=== PATIENT | female | born 2000 | race Two or more races ===

== ENCOUNTER 2024-01-06 16:16 | Emergency (ER) | payer OTHER ==
[2024-01-06 17:33] LABS: BASOPHILS # (AUTO) 0.1 10^3/uL (0.0-0.1); BASOPHILS % (AUTO) 0.5 %; EOSINOPHILS # (AUTO) 0.2 10^3/uL (0.0-0.7); HGB - HEMOGLOBIN 13.3 g/dL (12.0-16.0); LYMPHOCYTES % (AUTO) 32.2 %; MEAN CORPUSCULAR HEMOGLOBIN 30.7 pg (27.0-31.0); MEAN CORPUSCULAR HGB CONC 34.1 g/dL (32.0-36.0); MEAN CORPUSCULAR VOLUME 90.1 fL (81.0-99.0); MEAN PLATELET VOLUME 9.1 fL (7.9-10.8); MONOCYTES # (AUTO) 0.5 10^3/uL (0.0-1.0); MONOCYTES % (AUTO) 5.7 %; NEUTROPHILS # (AUTO) 5.5 10^3/uL (1.5-6.6); NEUTROPHILS % (AUTO) 59.2 %; PLT - PLATELET COUNT 281 10^3/uL (130-450); RED BLOOD COUNT 4.33 10^6/uL (4.20-5.40); RED CELL DISTRIBUTION WIDTH 11.9 % (12.0-15.0); WHITE BLOOD COUNT 9.2 x10^3/uL (4.8-10.8)
[2024-01-06 17:50] LABS: ALBUMIN 4.4 g/dL (3.2-5.5); ALBUMIN/GLOBULIN RATIO 1.5 (1.0-2.2); BILIRUBIN,TOTAL 0.6 mg/dL (0.2-1.0); CALCIUM 9.4 mg/dL (8.5-10.3); CREATININE 0.6 mg/dL (0.6-1.3); POTASSIUM 3.9 mmol/L (3.5-4.5); TOTAL PROTEIN 7.3 g/dL (6.4-8.9)
--- NOTE | 2024-01-06 18:53 | ED Physician Documentation ---
History of Present Illness - Stated complaint Stated Complaint: /ABD PX - Chief complaint Chief Complaint: Abd Pain - Additonal information Additional information: 23-year-old female with no pertinent past medical history presents emergency department for dark bowel movements that are now accompanied with maroon-colored blood. Patient says this started about 3 to 4 days ago she does not describe it as dark black but just says that it is dark and she started to notice some small clots that appears similar to menses clots but she is confident that she is not currently on her cycle. She has not generalized mid lower abdominal pain that does not radiate anywhere she has had recent unintentional 5 to 7 pound weight loss over the last month but says that she contributed this to recent Cymbalta initiation that she started taking about a month ago. No nausea or vomiting no fevers or chills no urinary urgency dysuria or frequency. No CVA tenderness. PD PAST MEDICAL HISTORY - Past Medical History Past Medical History: Yes Psych: Depression, Anxiety - Past Surgical History Past Surgical History: No - Allergies Allergies/Adverse Reactions: Allergies Allergy/AdvReac Type Severity Reaction Status Date / Time No Known Drug Allergies Allergy Verified 01/06/24 16:48 - Social History Does the pt smoke?: No Smoking Status: Never smoker Does the pt drink ETOH?: No Does the pt have substance abuse?: No - Immunizations Immunizations are current?: Yes - POLST Patient has POLST: No PD ED PE NORMAL - Vitals Vital signs reviewed: Yes - General General: Alert and oriented X 3, No acute distress, Well developed/nourished - Abdomen Abdomen: Normal bowel sounds, Soft, Non tender, No organomegaly, Other (Very mild distention no rebound tenderness) - Back Back: No CVA TTP - Derm Derm: Normal color, Warm and dry, No rash PD ED PE EXPANDED - Rectal Rectal: Fissure (12:00), Normal Tone, Ladies Suit Operator present (HUBERT Bernal present). No: Mass, Hemorrhoid Results - Vitals Vitals: Vital Signs - 24 hr 01/06/24 01/06/24 01/06/24 16:48 18:42 20:33 Temperature 36.8 C Heart Rate 84 78 74 Respiratory 16 Rate Blood Pressure 129/80 111/69 110/66 O2 Saturation 99 98 99 01/06/24 20:38 Temperature Heart Rate 71 Respiratory 16 Rate Blood Pressure 110/66 O2 Saturation 99 Oxygen O2 Source Room air - Labs Labs: Laboratory Tests 01/06/24 01/06/24 01/06/24 17:20 17:20 18:46 WBC 9.2 RBC 4.33 Hgb 13.3 Hct 39.0 MCV 90.1 MCH 30.7 MCHC 34.1 RDW 11.9 L Plt Count 281 MPV 9.1 Neut # (Auto) 5.5 Lymph # (Auto) 3.0 Gregory # (Auto) 0.5 Eos # (Auto) 0.2 Baso # (Auto) 0.1 Absolute Nucleated RBC 0.00 Nucleated RBC % 0.0 Sodium 139 Potassium 3.9 Chloride 105 Carbon Dioxide 29 Anion Gap 5.0 L BUN 16 Creatinine 0.6 Estimated GFR (MDRD) 123 Glucose 95 Calcium 9.4 Total Bilirubin 0.6 AST 14 ALT 12 Alkaline Phosphatase 76 Total Protein 7.3 Albumin 4.4 Globulin 2.9 Albumin/Globulin Ratio 1.5 Lipase 20 Urine Color YELLOW Urine Clarity CLEAR Urine pH 6.0 Ur Specific [place] 1.025 Urine Protein NEGATIVE Urine Glucose (UA) NEGATIVE Urine Ketones NEGATIVE Urine Occult Blood NEGATIVE Urine Nitrite NEGATIVE Urine Bilirubin NEGATIVE Urine Urobilinogen 0.2 (NORMAL) Ur Leukocyte Esterase NEGATIVE Ur Microscopic Review NOT INDICATED Urine Culture Comments NOT INDICATED Urine HCG, Qual NEGATIVE - Rads (name of study) Abdomen pelvis CT with Relevant Findings:: Final report received, EMP independent interpretation of test, Other (Findings in the colon of mild early or resolving colitis most likely infectious less likely inflammatory no evidence of appendicitis) PD Medical Decision Making - ED course ED course: 23-year-old female presents emergency department for concerns of bright red per rectum. No leukocytosis no anemia normal electrolytes normal kidney function normal urinalysis. CT without con was complete for further evaluation and CT abdomen pelvis reveals possible early onset colitis. Patient was told to follow-up with primary care provider if the symptoms persist over the next couple days for possible GI referral for possible outpatient colonoscopy outpatient. Rectal exam was complete with HUBERT Bernal at bedside she did appear to have an anal fissure at the 12:00 region that did not appear to have any bleeding noted from it and she denied any irritation with this no external or internal hemorrhoids were visualized or palpated. Return precautions given she has no nausea or vomiting she does not appear to be acutely ill she overall is very well-appearing and is safe for discharge at this time understanding to follow-up with primary care provider for further evaluation of this. Departure - Departure Disposition: 01 Home, Self Care Clinical Impression: Bright red blood per rectum Instructions: Abdominal Pain Comments: Thank you for trusting us with your care. We have completed labs as well as an abdominal CT scan for further evaluation and we are not seeing any acute abnormalities or findings at this point in time there is possible colitis also known as inflammation in your GI tract if you continue to have the symptoms it is important that he felt with your primary care provider for further evaluation and possible GI referral for an endoscopy colonoscopy. If the symptoms get worse or if you start to develop any dizziness nausea vomiting fevers or chills please present back to the emergency department immediately for further evaluation. Forms: PCP List Discharge Date/Time: 01/06/24 20:38
[2024-01-06 19:03] LABS: BILIRUBIN,URINE NEGATIVE (NEGATIVE); GLUCOSE, URINE (UA) NEGATIVE (NEGATIVE); KETONES,URINE (UA) NEGATIVE (NEGATIVE); LEUKOCYTE ESTERASE, URINE NEGATIVE (NEGATIVE); NITRITE,URINE NEGATIVE (NEGATIVE); OCCULT BLOOD,URINE NEGATIVE (NEGATIVE); PROTEIN,URINE NEGATIVE (NEGATIVE); UROBILINOGEN,URINE 0.2 (NORMAL) E.U./dL (NORMAL)
[2024-01-06 19:05] LABS: CLARITY,URINE CLEAR (CLEAR); HCG UR QUAL NEGATIVE
[2024-01-06] MEDS ORDERED: iohexoL-300 100 ML VIAL ONE (19:42)
--- NOTE | 2024-01-06 20:22 | CT Report ---
PROCEDURE: Abdomen/Pelvis W INDICATIONS: lower abd pain with cramping and blood CONTRAST: 100ml [id number] TECHNIQUE: After the administration of intravenous contrast, a CT scan of the abdomen and pelvis was performed. Images were recorded and evaluated at appropriate window settings. Reformats: coronal and sagittal. F or radiation dose reduction, the following was used: automated exposure control, adjustment of mA and /or kV according to patient size. COMPARISON: None. FINDINGS: Image quality: Diagnostic. Lower chest: Unremarkable. Liver: No solid mass. Gallbladder: No radiopaque stones or wall thickening. Biliary tree: No intrahepatic or extrahepatic dilation, accounting for age. Spleen: No splenomegaly. Pancreas: No pancreatic ductal dilation. Adrenals: No adrenal nodule. Kidneys and ureters: Symmetric enhancement. No hydronephrosis or nephrolithiasis. No solid mass or cy st requiring follow-up. No ureteral dilatation. Stomach, bowel and peritoneum: Stomach and small bowel are normal. Normal appendix. Very mild, diffus e, long segment thickening of the proximal colon wall with trace adjacent fascial thickening. No sign ificant fat stranding over fluid. No diverticula. No evidence of obstruction. No free air. Lymph nodes: No central or retroperitoneal adenopathy. Vessels: Normal caliber abdominal aorta, IVC, and portal vein. Patent portal vein. PELVIS Reproductive organs: Normal CT appearance of uterus and ovaries. Bladder: Decompressed. Pelvic lymph nodes: No pelvic adenopathy by size criteria. Bones: No aggressive osseous abnormality. Other: No significant ventral or inguinal hernia. IMPRESSION: Findings in the colon of mild, early, or resolving colitis, most likely infectious, less likely infla mmatory. No evidence of appendicitis. Reviewed by: Amina Monson MD on 01/06/2024 8:21 PM PDT Approved by: Amina Monson MD on 01/06/2024 8:21 PM PDT Station ID: [id number]
[2024-01-06 20:36] VITALS: BP 110/66; O2SAT 99
== END 2024-01-06 20:38 | disposition home or self-care (01) ==
LOC: ED 16:16
DX: K62.5 Hemorrhage of anus and rectum (principal)
CPT/HCPCS: 36415; 74177; 80053; 81003; 81025; 83690; 85025; 99283; Q9967; 81001; 87086